=== PATIENT | female | born 1935 | race Caucasian/White ===

== ENCOUNTER 2018-01-13 21:22 | Emergency (ER) | payer MEDICARE ==
[~2018-01-13] VITALS: Ht 170.2 cm; Wt 58.1 kg
[~2018-01-13 21:22] MED LIST: ALBU90OI6 INH; ALBU90OI61; ALEN70; ALEN70 PO; BUDE6HFA INH; CALCAVITD PO; CALCIUM PO; FERR325 PO; FLUSAL2505; FLUSAL2505 INH; FOLI1 PO; Flonase 0.05% N16 GM; HYDSUL200 PO; Hair, Skin & N1 EACH PO; LEVSOD100 PO; METTREX2.5 PO; NAPR500 PO; Norco 5-325 Ta1 EACH PO; RHEUMATREX PO; TIOT18 INH; TRIA80TC TOP; VITAMIN B122500 MC1 PO; VITAMIN D-32000 UNIT PO; Vitamin C100 M1 PO; Zofran Odt4 MG SL
[2018-01-13] MEDS ORDERED: IRON236 MG (21:38)
== END 2018-01-13 23:52 | disposition home or self-care (01) ==
LOC: ER 21:22
DX: R19.7 Diarrhea, unspecified (principal); J44.9 Chronic obstructive pulmonary disease, unspecified; Z88.5 Allergy status to narcotic agent; Z88.8 Allergy status to other drugs, medicaments and biological substances; Z79.899 Other long term (current) drug therapy
CPT/HCPCS: 74019; 99283-25

== ENCOUNTER 2018-07-15 17:23 | Emergency (ER) | payer MEDICARE ==
[~2018-07-15] VITALS: Ht 172.7 cm; Wt 58.1 kg
[~2018-07-15 17:23] MED LIST changes: +IRON236 MG
[2018-07-15] MEDS ORDERED: Advair Hfa 230-12 GM (17:35)
[2018-07-15] MEDS ORDERED: FOLI1 PO (17:35)
== END 2018-07-15 21:00 | disposition home or self-care (01) ==
LOC: ER 17:23
DX: S22.009A Unspecified fracture of unspecified thoracic vertebra, initial encounter for closed fracture (principal); S30.0XXA Contusion of lower back and pelvis, initial encounter; Z88.6 Allergy status to analgesic agent; Z88.5 Allergy status to narcotic agent; Z88.8 Allergy status to other drugs, medicaments and biological substances; Z79.899 Other long term (current) drug therapy; J44.9 Chronic obstructive pulmonary disease, unspecified; M06.9 Rheumatoid arthritis, unspecified; Z87.891 Personal history of nicotine dependence; W01.0XXA Fall on same level from slipping, tripping and stumbling without subsequent striking against object, initial encounter; Y92.009 Unspecified place in unspecified non-institutional (private) residence as the place of occurrence of the external cause
CPT/HCPCS: 70450; 72072; 72125; 99284-25

== ENCOUNTER → 2018-07-21 | Outpatient (CLI) | payer MEDICARE ==
[~2018-07-21] MED LIST changes: +Advair Hfa 230-12 GM
== END | disposition home or self-care (01) ==
LOC: PLD 10:11 → LAB SHORT 10:11
DX: C44.629 Squamous cell carcinoma of skin of left upper limb, including shoulder (principal); L57.0 Actinic keratosis
CPT/HCPCS: 88305

== ENCOUNTER 2018-09-06 11:29 | Observation (INO) | payer MEDICARE ==
[~2018-09-06] VITALS: Ht 170.2 cm; Wt 55.3 kg
[~2018-09-06 11:29] MED LIST changes: -ALBU90OI61; +ALBU90OI61 INH
[2018-09-06] MEDS ORDERED: ACET500 PO (12:01)
[2018-09-06 12:50] LABS: Hemoglobin 8.6 g/dL (11.5-16.0); Mean Corpuscular HGB 30.3 pg (26.0-34.0); Mean Corpuscular HGB Conc 31.9 g/dL (31.5-36.5); Mean Platelet Volume 9.1 fL (9.1-12.4); Platelet Count 321 K/mm3 (150-400); RDW Standard Deviation 47.8 fL (35.1-46.3); Red Blood Cell Count 2.84 M/mm3 (3.80-5.20); White Blood Cell Count 7.51 K/mm3 (4.00-11.30)
[2018-09-06 12:55] LABS: Mean Corpuscular Volume 95 fL (80-100)
[2018-09-06 13:01] LABS: Alanine Aminotransfer (ALT/SGP 15 U/L (12-78); Albumin, Blood 3.1 g/dL (3.4-5.0); Albumin/Globulin Ratio 0.8 (0.8-1.8); Alk Phos 60 U/L (50-136); Anion Gap 6 mmol/L (6-16); Aspartate Aminotrans (AST/SGOT 16 U/L (12-37); Bilirubin, Total 0.2 mg/dL (0.1-1.0); Blood Urea Nitrogen 18 mg/dL (8-24); Bun/Creatinine Ratio 38.4 (12.0-20.0); CO2, Blood 35 mmol/L (21-32); Chloride, Blood 95 mmol/L (98-108); Creatinine, Blood 0.47 mg/dL (0.40-1.00); Glomerular Filtration Rate >60 (60-); Glucose, Blood 118 mg/dL (70-99); Sodium, Blood 136 mmol/L (136-145); Total Protein, Blood 7.1 g/dL (6.4-8.2)
[2018-09-06 13:05] LABS: Influenza A Negative (NEGATIVE); Influenza B Negative (NEGATIVE)
[2018-09-06 13:32] LABS: BASOPHILS ABSOLUTE MAN 0.07 K/mm3 (0.00-0.23); BASOPHILS PERCENT MAN 1 % (0-2); EOSINOPHILS ABSOLUTE MAN 0.22 K/mm3 (0.00-0.68); EOSINOPHILS PERCENT MAN 3 % (0-6); LYMPHOCYTES ABSOLUTE MAN 0.67 K/mm3 (0.84-5.20); LYMPHOCYTES PERCENT MAN 9 % (21-46); METAMYELOCYTE ABSOLUTE MAN 0.15 K/mm3 (0.00-0.00); METAMYELOCYTE PERCENT MAN 2 % (0-0); MONOCYTES PERCENT MAN 12 % (4-13); NEUTROPHILS ABSOLUTE MAN 5.48 K/mm3 (1.96-9.15); SEG NEUTROPHILS PERCENT MAN 73 % (41-73); TOTAL CELLS COUNTED 100
[2018-09-06 17:30] LABS: Hematocrit 22.7 % (33.0-51.0); Hemoglobin 7.2 g/dL (11.5-16.0)
[2018-09-07 00:16] LABS: Hematocrit 28.5 % (33.0-51.0); Hemoglobin 9.1 g/dL (11.5-16.0)
[2018-09-07 06:38] LABS: Hematocrit 27.6 % (33.0-51.0); Hemoglobin 8.8 g/dL (11.5-16.0)
[2018-09-07 06:53] LABS: Anion Gap 6 mmol/L (6-16); Blood Urea Nitrogen 10 mg/dL (8-24); Bun/Creatinine Ratio 24.1 (12.0-20.0); CO2, Blood 32 mmol/L (21-32); Calcium, Blood 8.2 mg/dL (8.5-10.1); Chloride, Blood 103 mmol/L (98-108); Creatinine, Blood 0.42 mg/dL (0.40-1.00); Glomerular Filtration Rate >60 (60-); Glucose, Blood 103 mg/dL (70-99); Potassium, Blood 3.8 mmol/L (3.5-5.5); Sodium, Blood 141 mmol/L (136-145)
[2018-09-07 12:32] LABS: Hemoglobin 8.7 g/dL (11.5-16.0)
[2018-09-07] MEDS ORDERED: ASPI81CH PO (14:22)
[2018-09-07] MEDS ORDERED: Ferosul325 MG PO (14:23)
[2018-09-07] MEDS ORDERED: METTREX2.5 PO (14:24)
[2018-09-07] MEDS ORDERED: VITAMIN D-32000 UNIT PO (14:25)
[2018-09-07] MEDS ORDERED: FLUT1DIS5 INH (14:25)
--- NOTE | 2018-09-07 14:26 | NUR ---
INTO SDS VIA [facility]. PT ORTHOPNEIC. PURSED LIP BREATHING NOTED. SATS 92% ON 3 LITERS NASAL CANULA. HISTORY AND ALLERGIES REVIEWED. NPO STATUS CONFIRMED.
[2018-09-07] MEDS ORDERED: CALCIUM 600 +1 EAC5 PO (14:28)
--- NOTE | 2018-09-07 14:49 | NUR ---
LUNGS TIGHT AND DIMINISHED THROUGH OUT. DR. ALVARADO MADE AWARE. DUONEB GIVEN.
--- NOTE | 2018-09-07 15:03 | NUR ---
09/07/18 1503 Mekhi Mckeon History, Chart, Medications and Allergies reviewed before start of procedure.MONITOR INTACT WITH CONTINUOUS PULSE OXIMETRY AND INTERMITTENT BP.3-LEAD EKG REVIEWED WITH PHYSICIAN PRIOR TO START OF PROCEDURE.O2 VIA N/C INTACT THROUGHOUT SEDATION/PROCEDURE. Patient confirms NPO status and agrees with scheduled surgery.See Anesthesia record.
--- NOTE | 2018-09-07 17:06 | NUR ---
NEW ER ADMIT. DX GIB. SHE WENT TO [facility] FOR EGD WITH DR ASHFORD PRIOR TO COMING TO MED FLOOR. 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 DR ASHFORD ORDER FL DIET ADV CHIQUI. ICE CREAM PROVIDED. SEH STATE NO PAIN, STATE PASSING GAS. SHE IS A/O X4, PLEASANT/COOPERATIVE. HX RHUEMATOID ARTHRITIS, HAND JOINTS CONTRACTED. HX COPD, HOME O2 3L. SHE STATE NO SOB @ REST, BIOX 94% 3.5L, LUNGS CLEAR DECRESED. H&H PRIOR TO PROCEDURE 8.01/23, WILL MX.
[2018-09-07 18:38] LABS: Hematocrit 28.7 % (33.0-51.0); Hemoglobin 9.1 g/dL (11.5-16.0)
[2018-09-08 01:00] LABS: Hemoglobin 8.8 g/dL (11.5-16.0)
[2018-09-08 06:43] LABS: Hematocrit 26.8 % (33.0-51.0); Hemoglobin 8.5 g/dL (11.5-16.0)
--- NOTE | 2018-09-08 07:47 | NUR ---
SHIFT SUMMARY: PT S A&O X 4, SBA TO BSC/BR. PT HAS 2 BMS THIS SHIFT; BLACK STOOL, FORMED, HARD. SMALL-MEDIUM IN SIZE. LS TIGHT AND DIM T/O; ON 3L VIA NC WHICH IS THE BASELINE. PT TO ADVANCED DIET TOLERATED; PT TO BE REG DIET AT BREAKFAST THIS AM. PT DENIES N/V, DENIES PAIN. HGB THIS MORNING @ 8.5. NO OTHER CHANGES TO REPORT; WILL CONT TO MONITOR AND PROVIDE CARE UNTIL PRESUMED BY ONCTARUN ELIZABETH.
[2018-09-08 12:34] LABS: Hematocrit 27.7 % (33.0-51.0); Hemoglobin 8.9 g/dL (11.5-16.0)
[2018-09-08 16:59] LABS: Hematocrit 28.8 % (33.0-51.0); Hemoglobin 9.1 g/dL (11.5-16.0)
--- NOTE | 2018-09-08 18:21 | NUR ---
summary PT IS A/O X4, PLEASANT AFFECT. UP TO BSC SBA. SHE CONTINUES SOB WITH EXERT, HX COPD, SHE IS ON HOME DOSE 3L O2, BIOX >90%, LUNGS DECREASED T/O. DX GIB, SHE HAD EGD YESTERDAY, BLEEDING SITES CAUTERIZED/CLIPPED BY DR ASHFORD. DR TAYLOR MONITORING H&H Q6 TODAY, LAST 9.07/27.8, STABLE. SHE CONTINUES WEAK/FATIGUED, DR TAYLOR BACK THIS AFTERNOON, STATE NOT READY FOR D/C TODAY. PT STATE INCREASING SOB, RT NOTIFIED FOR NEB TX. SUPPORTIVE FAMILY IN TO VISIT TODAY, WITH PT MOST OF DAY.
--- NOTE | 2018-09-09 04:33 | NUR ---
SHIFT SUMMARY PT HAS SLETP WELL DURING THE NIGHT, UP TO BSC WITH SBA. PT DYSPNEIC EARLY ON IN SHIFT, BUT STATES THIS AM THAT SHE IS FEELING BETTER AND BREATHING IS EASIER. NO DYSPNEA NOTED. OXYGEN REMAINS ON AT 3L/NC. NO ACUTE EVENTS OVER NIGHT. WILL CONTINUE TO MONITOR.
[2018-09-09 05:33] LABS: Hematocrit 30.6 % (33.0-51.0); Hemoglobin 9.6 g/dL (11.5-16.0)
[2018-09-09] MEDS ORDERED: FLUC100 PO (08:29)
--- NOTE | 2018-09-09 10:28 | NUR ---
DISCHARGE SUMMARY PT AXO, ANXIOUS AND COOPERATIVE WITH CARE. PT DISCHARGED TO HOME, LEFT ROOM WITH ESCORT AND WHEELCHAIR AT 0955. IV DC'D AND BELONGINGS RETURNED. PT EDUCATED ON NEW MEDICATIONS, AND INSTRUCTED TO FOLLOW UP WITH PCP AND DR ASHFORD.
== END 2018-09-09 09:54 | disposition home or self-care (01) ==
LOC: ER 11:29 → MEDS 11:30 → ERHOLD 11:30 → MEDS 11:30 → ERHOLD 11:30 → ER 11:30 → MEDS 11:31 → ERHOLD 11:31 → MEDS 11:32 → ERHOLD 09-07 15:24 → MEDS 09-07 15:24 → ENPENDDIS 09-09 08:14 → MEDS 09-09 09:54
PROVIDERS: Emergency Medicine; Internal Medicine Gastroenterology; ADMIT Family Medicine
PROC: 0W3P8ZZ Control Bleeding in Gastrointestinal Tract, Via Natural or Artificial Opening Endoscopic (ICD-10-PCS; principal; 2018-09-07 15:00)
DX: Q27.33 Arteriovenous malformation of digestive system vessel (principal); B37.9 Candidiasis, unspecified; E03.9 Hypothyroidism, unspecified; M06.9 Rheumatoid arthritis, unspecified; J44.9 Chronic obstructive pulmonary disease, unspecified; K92.1 Melena; D60.0 Chronic acquired pure red cell aplasia; Z79.899 Other long term (current) drug therapy; Z88.5 Allergy status to narcotic agent; Z87.891 Personal history of nicotine dependence
CPT/HCPCS: 36415; 36430; 71046; 80048; 80053; 82272; 85014; 85018; 85025; 86850; 86900; 86901; 86923; 87804; 93005; 93010; 94640; 94760; 96361; 96365; 96366; 99285-25; C9113; G0378; J7030; J7042; J7120; P9016

== ENCOUNTER → 2019-05-12 | Outpatient (CLI) | payer MEDICARE ==
[~2019-05-12] MED LIST changes: +ACET500 PO; +ASPI81CH PO; +CALCIUM 600 +1 EAC5 PO; +FLUC100 PO; +FLUT1DIS5 INH; +Ferosul325 MG PO
== END | disposition home or self-care (01) ==
LOC: LAB SHORT 07:47 → PLD 07:47
DX: D04.62 Carcinoma in situ of skin of left upper limb, including shoulder (principal)
CPT/HCPCS: 88305

== ENCOUNTER 2020-07-10 12:13 | Emergency (ER) | payer MEDICARE ==
[~2020-07-10] VITALS: Ht 170.2 cm; Wt 53.1 kg
[2020-07-10 13:07] LABS: BASOPHILS ABSOLUTE AUTO 0.03 K/mm3 (0.00-0.23); BASOPHILS PERCENT AUTO 1 % (0-2); EOSINOPHILS ABSOLUTE AUTO 0.18 K/mm3 (0.00-0.68); EOSINOPHILS PERCENT AUTO 4 % (0-6); Hematocrit 32.5 % (33.0-51.0); Hemoglobin 10.2 g/dL (11.5-16.0); IMMATURE GRAN ABSOLUTE AUTO 0.02 K/mm3 (0.00-0.10); IMMATURE GRAN PERCENT AUTO 0 % (0-1); LYMPHOCYTES ABSOLUTE AUTO 0.54 K/mm3 (0.84-5.20); LYMPHOCYTES PERCENT AUTO 11 % (21-46); MONOCYTES ABSOLUTE AUTO 0.75 K/mm3 (0.16-1.47); MONOCYTES PERCENT AUTO 15 % (4-13); Mean Corpuscular HGB 28.9 pg (26.0-34.0); Mean Corpuscular HGB Conc 31.4 g/dL (31.5-36.5); Mean Corpuscular Volume 92 fL (80-100); Mean Platelet Volume 9.1 fL (9.1-12.4); NEUTROPHILS ABSOLUTE AUTO 3.56 K/mm3 (1.96-9.15); NEUTROPHILS PERCENT AUTO 70 % (41-73); Platelet Count 279 K/mm3 (150-400); RDW Coefficient Variation 13.4 % (11.7-14.2); RDW Standard Deviation 44.8 fL (35.1-46.3); Red Blood Cell Count 3.53 M/mm3 (3.80-5.20); White Blood Cell Count 5.08 K/mm3 (4.00-11.30)
[2020-07-10 13:17] LABS: Alanine Aminotransfer (ALT/SGP 18 U/L (12-78); Albumin, Blood 3.4 g/dL (3.4-5.0); Albumin/Globulin Ratio 0.8 (0.8-1.8); Alk Phos 63 U/L (50-136); Anion Gap 3 mmol/L (6-16); Aspartate Aminotrans (AST/SGOT 15 U/L (12-37); Bilirubin, Total 0.4 mg/dL (0.1-1.0); Blood Urea Nitrogen 12 mg/dL (8-24); Bun/Creatinine Ratio 22.6 (12.0-20.0); CO2, Blood 37 mmol/L (21-32); Calcium, Blood 9.8 mg/dL (8.5-10.1); Chloride, Blood 96 mmol/L (98-108); Creatinine, Blood 0.53 mg/dL (0.40-1.00); Globulin, Blood 4.3 g/dL (2.2-4.0); Glomerular Filtration Rate >60 (60-); Glucose, Blood 99 mg/dL (70-99); Sodium, Blood 136 mmol/L (136-145); Total Protein, Blood 7.7 g/dL (6.4-8.2); Troponin I <0.015 ng/mL (0.000-0.040)
[2020-07-10] MEDS ORDERED: PRED10 PO (15:19)
== END 2020-07-10 15:45 | disposition home or self-care (01) ==
LOC: ER 12:13
PROVIDERS: Emergency Medicine
DX: R06.02 Shortness of breath (principal); J44.9 Chronic obstructive pulmonary disease, unspecified; Z88.5 Allergy status to narcotic agent; Z88.8 Allergy status to other drugs, medicaments and biological substances; Z79.899 Other long term (current) drug therapy; Z87.891 Personal history of nicotine dependence
CPT/HCPCS: 36415; 71046; 80053; 84484; 85025; 93005; 93010; 99285-25

== ENCOUNTER 2021-08-19 17:02 | Emergency (ER) | payer OTHER ==
[~2021-08-19] VITALS: Ht 170.2 cm; Wt 50.4 kg
[~2021-08-19 17:02] MED LIST changes: +PRED10 PO
== END 2021-08-19 20:46 | disposition home or self-care (01) ==
LOC: ER 17:02
DX: R04.0 Epistaxis (principal); J44.9 Chronic obstructive pulmonary disease, unspecified; Z88.5 Allergy status to narcotic agent; Z88.6 Allergy status to analgesic agent; Z88.8 Allergy status to other drugs, medicaments and biological substances; Z79.899 Other long term (current) drug therapy; Z87.891 Personal history of nicotine dependence
CPT/HCPCS: A9270

== ENCOUNTER 2022-01-15 09:35 | Emergency (ER) | payer OTHER ==
[~2022-01-15] VITALS: Ht 170.2 cm; Wt 53.5 kg
== END 2022-01-15 14:25 | disposition home or self-care (01) ==
LOC: ER 09:35
DX: R04.0 Epistaxis (principal); J44.9 Chronic obstructive pulmonary disease, unspecified; Z88.5 Allergy status to narcotic agent; Z88.8 Allergy status to other drugs, medicaments and biological substances; Z79.899 Other long term (current) drug therapy; Z87.891 Personal history of nicotine dependence
CPT/HCPCS: A9270

== ENCOUNTER 2022-01-19 16:08 | Emergency (ER) | payer OTHER ==
[~2022-01-19] VITALS: Ht 170.2 cm; Wt 49.9 kg
== END 2022-01-19 18:53 | disposition home or self-care (01) ==
LOC: ER 16:08
DX: R04.0 Epistaxis (principal); J44.9 Chronic obstructive pulmonary disease, unspecified; Z88.8 Allergy status to other drugs, medicaments and biological substances; Z88.5 Allergy status to narcotic agent; Z79.899 Other long term (current) drug therapy; Z87.891 Personal history of nicotine dependence; Z99.81 Dependence on supplemental oxygen
CPT/HCPCS: A9270

== ENCOUNTER 2022-02-01 10:54 | Emergency (ER) | payer OTHER ==
[~2022-02-01] VITALS: Ht 167.6 cm; Wt 52.2 kg
== END 2022-02-01 12:56 | disposition home or self-care (01) ==
LOC: ER 10:54
DX: R04.0 Epistaxis (principal); Z79.899 Other long term (current) drug therapy
CPT/HCPCS: A9270

== ENCOUNTER 2022-04-17 13:38 | Emergency (ER) | payer OTHER ==
[~2022-04-17] VITALS: Ht 170.2 cm; Wt 47.6 kg
== END 2022-04-17 16:19 | disposition home or self-care (01) ==
LOC: ER 13:38
DX: R04.0 Epistaxis (principal); J44.9 Chronic obstructive pulmonary disease, unspecified; Z88.8 Allergy status to other drugs, medicaments and biological substances; Z88.5 Allergy status to narcotic agent; Z88.6 Allergy status to analgesic agent; Z79.899 Other long term (current) drug therapy; Z87.891 Personal history of nicotine dependence
CPT/HCPCS: 30903; 99283-25

== ENCOUNTER 2022-04-30 12:04 | Emergency (ER) | payer OTHER ==
[~2022-04-30] VITALS: Ht 170.2 cm; Wt 50.4 kg
== END 2022-04-30 16:51 | disposition home or self-care (01) ==
LOC: ER 12:04
DX: R04.0 Epistaxis (principal); J44.9 Chronic obstructive pulmonary disease, unspecified; Z88.8 Allergy status to other drugs, medicaments and biological substances; Z88.5 Allergy status to narcotic agent; Z79.899 Other long term (current) drug therapy; Z87.891 Personal history of nicotine dependence
CPT/HCPCS: A9270

== ENCOUNTER 2022-08-18 20:04 | Emergency (ER) | payer OTHER ==
[~2022-08-18] VITALS: Ht 154.9 cm; Wt 53.5 kg
== END 2022-08-18 22:05 | disposition home or self-care (01) ==
LOC: ER 20:04
DX: R04.0 Epistaxis (principal); Z88.8 Allergy status to other drugs, medicaments and biological substances; Z88.5 Allergy status to narcotic agent; Z79.899 Other long term (current) drug therapy; Z79.52 Long term (current) use of systemic steroids; J44.9 Chronic obstructive pulmonary disease, unspecified; Z87.891 Personal history of nicotine dependence; M06.9 Rheumatoid arthritis, unspecified
CPT/HCPCS: 30901; 99283-25

== ENCOUNTER 2022-08-18 23:18 | Emergency (ER) | payer OTHER ==
[~2022-08-18] VITALS: Ht 162.6 cm; Wt 49.9 kg
== END 2022-08-19 02:20 | disposition home or self-care (01) ==
LOC: ER 23:18
DX: R04.0 Epistaxis (principal); Z88.8 Allergy status to other drugs, medicaments and biological substances; Z88.5 Allergy status to narcotic agent; Z79.899 Other long term (current) drug therapy; Z79.52 Long term (current) use of systemic steroids
CPT/HCPCS: 30903; 99282-25

== ENCOUNTER 2022-09-18 03:54 | Emergency (ER) | payer OTHER ==
[~2022-09-18] VITALS: Ht 165.1 cm; Wt 65.8 kg
[2022-09-18 04:25] LABS: BASOPHILS ABSOLUTE AUTO 0.03 K/mm3 (0.00-0.23); BASOPHILS PERCENT AUTO 1 % (0-2); EOSINOPHILS ABSOLUTE AUTO 0.07 K/mm3 (0.00-0.68); EOSINOPHILS PERCENT AUTO 1 % (0-6); Hematocrit 31.6 % (33.0-51.0); Hemoglobin 10.1 g/dL (11.5-16.0); IMMATURE GRAN ABSOLUTE AUTO 0.02 K/mm3 (0.00-0.10); IMMATURE GRAN PERCENT AUTO 0 % (0-1); LYMPHOCYTES ABSOLUTE AUTO 0.55 K/mm3 (0.84-5.20); LYMPHOCYTES PERCENT AUTO 10 % (21-46); MONOCYTES ABSOLUTE AUTO 0.36 K/mm3 (0.16-1.47); MONOCYTES PERCENT AUTO 7 % (4-13); Mean Corpuscular HGB 29.3 pg (26.0-34.0); Mean Corpuscular Volume 92 fL (80-100); NEUTROPHILS ABSOLUTE AUTO 4.33 K/mm3 (1.96-9.15); NEUTROPHILS PERCENT AUTO 81 % (41-73); Platelet Count 240 K/mm3 (150-400); RDW Coefficient Variation 14.4 % (11.7-14.2); RDW Standard Deviation 48.3 fL (35.1-46.3); Red Blood Cell Count 3.45 M/mm3 (3.80-5.20); White Blood Cell Count 5.36 K/mm3 (4.00-11.30)
[2022-09-18] MEDS ORDERED: FOLI1 PO (05:56)
== END 2022-09-18 06:45 | disposition home or self-care (01) ==
LOC: ER 03:54
PROVIDERS: Emergency Medicine
DX: R04.0 Epistaxis (principal); J44.9 Chronic obstructive pulmonary disease, unspecified; Z87.891 Personal history of nicotine dependence; Z88.5 Allergy status to narcotic agent; Z88.8 Allergy status to other drugs, medicaments and biological substances; Z79.899 Other long term (current) drug therapy
CPT/HCPCS: 36415; 85025; A9270

== ENCOUNTER 2022-09-19 12:01 | Emergency (ER) | payer OTHER ==
[~2022-09-19] VITALS: Ht 162.6 cm; Wt 49.0 kg
== END 2022-09-19 14:27 | disposition home or self-care (01) ==
LOC: ER 12:01
DX: R04.0 Epistaxis (principal); Z88.8 Allergy status to other drugs, medicaments and biological substances; Z88.5 Allergy status to narcotic agent; Z79.899 Other long term (current) drug therapy; Z87.891 Personal history of nicotine dependence
CPT/HCPCS: 99282

== ENCOUNTER 2022-09-25 17:49 | Emergency (ER) | payer OTHER ==
[~2022-09-25] VITALS: Ht 167.6 cm; Wt 52.2 kg
== END 2022-09-25 20:23 | disposition home or self-care (01) ==
LOC: ER 17:49
DX: R04.0 Epistaxis (principal); Z88.8 Allergy status to other drugs, medicaments and biological substances; Z88.5 Allergy status to narcotic agent; Z79.899 Other long term (current) drug therapy; Z79.52 Long term (current) use of systemic steroids; J44.9 Chronic obstructive pulmonary disease, unspecified; M06.9 Rheumatoid arthritis, unspecified; Z87.891 Personal history of nicotine dependence
CPT/HCPCS: A9270

== ENCOUNTER 2023-02-14 07:35 | Emergency (ER) | payer OTHER ==
[~2023-02-14] VITALS: Ht 160 cm; Wt 56.7 kg
[2023-02-14 07:58] LABS: BASOPHILS ABSOLUTE AUTO 0.04 K/mm3 (0.00-0.23); BASOPHILS PERCENT AUTO 1 % (0-2); EOSINOPHILS ABSOLUTE AUTO 0.09 K/mm3 (0.00-0.68); EOSINOPHILS PERCENT AUTO 2 % (0-6); Hematocrit 34.1 % (33.0-51.0); Hemoglobin 10.2 g/dL (11.5-16.0); IMMATURE GRAN ABSOLUTE AUTO 0.05 K/mm3 (0.00-0.10); IMMATURE GRAN PERCENT AUTO 1 % (0-1); LYMPHOCYTES ABSOLUTE AUTO 0.63 K/mm3 (0.84-5.20); LYMPHOCYTES PERCENT AUTO 11 % (21-46); MONOCYTES ABSOLUTE AUTO 0.34 K/mm3 (0.16-1.47); MONOCYTES PERCENT AUTO 6 % (4-13); Mean Corpuscular HGB 30.5 pg (26.0-34.0); Mean Corpuscular HGB Conc 29.9 g/dL (31.5-36.5); Mean Corpuscular Volume 102 fL (80-100); Mean Platelet Volume 9.2 fL (9.1-12.4); NEUTROPHILS ABSOLUTE AUTO 4.84 K/mm3 (1.96-9.15); NEUTROPHILS PERCENT AUTO 81 % (41-73); Platelet Count 167 K/mm3 (150-400); RDW Standard Deviation 59.7 fL (35.1-46.3); Red Blood Cell Count 3.34 M/mm3 (3.80-5.20); White Blood Cell Count 5.99 K/mm3 (4.00-11.30)
[2023-02-14 08:25] LABS: Alanine Aminotransfer (ALT/SGP 15 U/L (12-78); Albumin, Blood 3.3 g/dL (3.4-5.0); Albumin/Globulin Ratio 1.2 (0.8-1.8); Alk Phos 35 U/L (50-136); Anion Gap Unable to Calculate mmol/L (6-16); Aspartate Aminotrans (AST/SGOT 27 U/L (12-37); Bilirubin, Total 0.3 mg/dL (0.1-1.0); Blood Urea Nitrogen 11 mg/dL (8-24); Bun/Creatinine Ratio 19.8 (12.0-20.0); CO2, Blood 45 mmol/L (21-32); Calcium, Blood 8.8 mg/dL (8.5-10.1); Chloride, Blood 95 mmol/L (98-108); Creatinine, Blood 0.56 mg/dL (0.40-1.00); Globulin, Blood 2.7 g/dL (2.2-4.0); Glomerular Filtration Rate 89 (60-); Glucose, Blood 123 mg/dL (70-99); Potassium, Blood 4.5 mmol/L (3.5-5.5); Sodium, Blood 139 mmol/L (136-145)
[2023-02-14] MEDS ORDERED: Prednisone20 MG PO (10:34)
[2023-02-14 12:15] VITALS: BP 140/63
== END 2023-02-14 12:28 | disposition home or self-care (01) ==
LOC: ER 07:35
PROVIDERS: Emergency Medicine
DX: J44.1 Chronic obstructive pulmonary disease with (acute) exacerbation (principal); Z88.8 Allergy status to other drugs, medicaments and biological substances; Z88.5 Allergy status to narcotic agent; Z79.52 Long term (current) use of systemic steroids; Z79.51 Long term (current) use of inhaled steroids; Z79.899 Other long term (current) drug therapy; Z87.891 Personal history of nicotine dependence
CPT/HCPCS: 71045; 80053; 84484; 85025; 93005; 93010; 94640; 99285-25